=== PATIENT | male | born 1965 | race Caucasian/White ===

== ENCOUNTER 2019-01-07 08:29 | Emergency (ER) | payer BC ==
[~2019-01-07] VITALS: Ht 167.6 cm; Wt 99.8 kg
--- NOTE | 2019-01-07 08:41 | NUR ---
PT IS IN ROOM #1A. DR PRIDE EVALUATED THE PT.
[2019-01-07 09:00] LABS: BASOPHILS # (AUTO) 0.1 K/uL (0.0-8.0); BASOPHILS % (AUTO) 0.8 % (0.0-2.0); EOSINOPHILS # (AUTO) 0.1 K/uL (0.0-0.7); EOSINOPHILS % (AUTO) 1.3 % (0.0-7.0); HEMATOCRIT 44.1 % (36.7-47.1); HEMOGLOBIN 14.6 g/dL (12.5-16.3); LYMPHOCYTES % (AUTO) 30.2 % (20.5-51.5); MEAN CORPUSCULAR HEMOGLOBIN 28.7 uug (23.8-33.4); MEAN CORPUSCULAR HGB CONC 33 g/dL (32.5-36.3); MEAN CORPUSCULAR VOLUME 86.6 fL (73.0-96.2); MONOCYTES # (AUTO) 0.4 K/uL (2.0-10.0); MONOCYTES % (AUTO) 5.6 % (0.0-11.0); NEUTROPHILS # (AUTO) 4.1 K/uL (1.8-8.9); NEUTROPHILS % (AUTO) 62.1 % (38.5-71.5); PLATELET COUNT (AUTO) 223 K/uL (152-348); RED BLOOD CELL COUNT(AUTO) 5.09 MIL/uL (4.06-5.63); WHITE BLOOD COUNT (AUTO) 6.6 K/uL (3.6-10.2)
[2019-01-07 09:05] LABS: CREATININE 1.1 mg/dL (0.6-1.3); POTASSIUM 3.8 mmol/L (3.5-5.1)
[2019-01-07] MEDS ORDERED: predniSONE 20 MG TABLET ONE (09:12)
[2019-01-07] MEDS ORDERED: predniSONE 20 MG TABLET PO ONE (09:15)
[2019-01-07 09:50] VITALS: BP 147/91
--- NOTE | 2019-01-07 10:02 | NUR ---
PT WAS D/C'd TO HOME . D/C INSTRUCTIONS GIVEN TO THE PT BY DR PRIDE. GAIT IS STABLE. PT DENIES PAIN. NO S/S OF DISTRESS AT THE TIME OF DISCHARGE.
== END 2019-01-07 10:06 | disposition home or self-care (01) ==
LOC: ER 08:29
DX: G51.0 Bell's palsy (principal); E78.5 Hyperlipidemia, unspecified; E11.9 Type 2 diabetes mellitus without complications; F17.200 Nicotine dependence, unspecified, uncomplicated
CPT/HCPCS: 36415; 80048; 85025; 99283; J7512; A4663